=== PATIENT | male | born 1965 | race Hispanic/Latino ===

== ENCOUNTER 2019-02-10 01:09 | Emergency (ER) | payer BC ==
[2019-02-10 01:45] VITALS: O2SAT 99
[2019-02-10 02:49] LABS: BASO # 0.1 K/uL (0.0-0.2); EOS # 0.4 K/uL (0.0-0.7); EOS % 6.9 % (0.0-4.0); HEMOGLOBIN 13.8 g/dL (12.0-18.0); LYMPH # 1.6 K/uL (1.0-4.3); LYMPH % 24.6 % (20.0-40.0); MEAN CELL VOLUME 91.4 fl (80.0-94.0); MEAN CORPUSCULAR HEMOGLOBIN 30.9 pg (27.0-31.0); MEAN CORPUSCULAR HGB CONC 33.8 g/dL (33.0-37.0); MEAN PLATELET VOLUME 7.8 fl (7.2-11.7); MONO # 0.7 K/uL (0.0-0.8); MONO % 11.4 % (0.0-10.0); NEUT # 3.6 K/uL (1.8-7.0); NEUT % 56.1 % (50.0-75.0); PROTHROMBIN TIME 11.4 Seconds (9.8-13.1); RBC 4.46 Mil/uL (4.40-5.90); RED CELL DISTRIBUTION WIDTH 13.9 % (11.5-14.5); WHITE BLOOD COUNT 6.4 K/uL (4.8-10.8)
[2019-02-10 02:51] LABS: PARTIAL THROMBOPLASTIN TIME 25.7 Seconds (25.6-37.1)
[2019-02-10 02:53] LABS: BLOOD UREA NITROGEN 23 mg/dl (9-20); CALCIUM 9.5 mg/dL (8.4-10.2); GFR NON-AFRICAN AMERICAN > 60
--- NOTE | 2019-02-10 03:02 | ED PDOC ---
Syncope/Near Syncope/Dizziness Time Seen by Provider: 02/10/19 01:44 Chief Complaint (Nursing): Syncope Chief Complaint (Provider): Syncope History Per: Patient History/Exam Limitations: no limitations Onset/Duration Of Symptoms: Days, Waxing/Waning Additional Complaint(s): 54 y/o male with no significant PMHx presents to the ED for evaluation of a syncopal episode. Patient states he has been in bed all day due to sustaining a knee injury from running. Patient notes that when he got up to go to the kitchen, he felt like the blood rushed from hist head to the rest of his body causing him to be very lightheaded, dizzy and short of breath. Patient states he passed out and hit his head. Patient denies any seizure activity. Patient only complaining of a mild headache at this time. PMD: Dr. Efrain Casas Past Medical History Reviewed: Historical Data, Nursing Documentation, Vital Signs Vital Signs: Last Vital Signs Temp 97.4 F L 02/10/19 01:21 Pulse 70 02/10/19 01:21 Resp 17 02/10/19 01:21 BP 137/74 02/10/19 01:21 Pulse Ox 99 02/10/19 01:21 - Medical History PMH: No Chronic Diseases - Surgical History Surgical History: No Surg Hx - Family History Family History: States: Unknown Family Hx - Home Medications Home Medications: Ambulatory Orders Medication Instructions Recorded No Known Home Med 02/02/17 - Allergies Allergies/Adverse Reactions: Allergies Allergy/AdvReac Type Severity Reaction Status Date / Time No Known Allergies Allergy Verified 02/02/17 15:33 Review of Systems ROS Statement: Except As Marked, All Systems Reviewed And Found Negative Respiratory: Positive for: Shortness of Breath Musculoskeletal: Positive for: Other (head injury) Neurological: Positive for: Headache, Dizziness (lightheadedness) Physical Exam - Reviewed Nursing Documentation Reviewed: Yes Vital Signs Reviewed: Yes - Physical Exam Appears: Positive for: No Acute Distress Head Exam: Negative for: NORMAL INSPECTION (skin tear to the upper forehead. 2 cm jadded laceration to the lower forehead. Abrasian noted to the nasal bridge. Nares noted to have dried blood. No septal hematoma. ) Skin: Positive for: Warm, Dry Eye Exam: Positive for: Normal appearance Neck: Positive for: Normal, Painless ROM Cardiovascular/Chest: Positive for: Regular Rate, Rhythm. Negative for: Murmur Respiratory: Positive for: Normal Breath Sounds. Negative for: Respiratory Distress Extremity: Positive for: Normal ROM. Negative for: Deformity Neurological/Psych: Positive for: Awake, Alert, Oriented (x3). Negative for: Motor/Sensory Deficits - Laboratory Results Result Diagrams: 02/10/19 02:35 02/10/19 02:35 Lab Results: PT 11.4 Seconds (9.8-13.1) 02/10/19 02:35 INR 1.0 02/10/19 02:35 APTT 25.7 Seconds (25.6-37.1) 02/10/19 02:35 - ECG O2 Sat by Pulse Oximetry: 99 (RA) Pulse Ox Interpretation: Normal Medical Decision Making Medical Decision Making: Time: 210 A/P: 54 y/o male with syncope after prolonged immobilization -- CT Head w/o Contrast -- CT Maxillofacial w/o Contrast -- EKG -- Alcohol Serum -- BMP -- Urine Drug Screen -- CBC with Differentials -- PTT -- Prothrombin Time -- Glucose, POC -- Tylenol 650 mg PO -- Glucose, Blood, POC Time: 035 CT scan of the facial bones. Indication: Facial injury. Technique: Axial CT scan images without contrast. Reformatted coronal and sagittal images. Findings: Right frontal soft tissue laceration. Normal bilateral orbital contents. Normal bilateral medial and inferior orbital escoto. Normal bilateral maxillary bones. Normal bilateral maxillary sinuses. Normal bilateral frontozygomatic arches. Normal bilateral zygomatic temporal arches. Normal nasal bones. Normal anterior nasal spine. There is no demonstrated fracture. Normal visualized frontal, ethmoidal and sphenoid sinuses. Impression: No CT evidence of acute bone pathology. Thank you for your kind referral of this patient. Electronically signed on Feb 10, 2019 3:56:58 AM EDT by: Rhiannon Lundy M.D., Certified by AIDE, MSK, Neuroradiology Time: 358 CT SCAN OF THE BRAIN WITHOUT IV CONTRAST CLINICAL INDICATION: Head injury. TECHNIQUE: Axial and reformatted sagittal and coronal images of the brain obtained without IV contrast administration. Normal size of the ventricles and extra-axial spaces for the patient's age. Normal white matter tracts of the supratentorial brain. Normal basal ganglia and thalami. Normal brainstem. Normal cerebellum. There is no demonstrated extra-axial, intraparenchymal, or intraventricular hemorrhage. There are no findings of an acute ischemic infarction. Normal calvarium. There is no demonstrated fracture. Normal soft tissue structures. Normal visualized paranasal sinuses. IMPRESSION: Normal unenhanced CT scan of the brain. Electronically signed on Feb 10, 2019 3:59:49 AM EDT by: Rhiannon Lundy M.D., Certified by ABR, MSK, Neuroradiology Time: 0 -- Discussed findings of CT with patient. Patient reports an improvement of symptoms. Laceration repair performed. Patient is stable for discharge home. ___ Scribe Attestation: Documented by Igor Tineo, acting as a scribe for Brady Hayden MD. Provider Scribe Attestation: All medical record entries made by the Scribe were at my direction and per sonally dictated by me. I have reviewed the chart and agree that the record accurately reflects my personal performance of the history, physical exam, medical decision making, and the department course for this patient. I have also personally directed, reviewed, and agree with the discharge instructions and disposition. Procedures - Laceration/Wound Repair Face Wound Length (cm): 2 Wound's Depth, Shape: irregular (JAGGED) Irrigated w/ Saline (ccs): 100 Anesthesia: Lidocaine w/ Epi Wound Repaired With: Sutures Suture Size/Type: 6:0 Number of Sutures: 6 Wound Complexity: Simple Disposition - Clinical Impression Clinical Impression: Syncope, Laceration, Head injury - Patient ED Disposition Is Patient to be Admitted: No Counseled Patient/Family Regarding: Studies Performed, Diagnosis, Need For Followup - Disposition Referrals: [facility] [Outside] Disposition: Routine/Home Disposition Time: 04:40 Condition: STABLE Instructions: Syncope (Fainting), Closed Head Injury, Laceration Repair With Stitches (DC) Forms: [facility] ([place]ian)
[2019-02-10] MEDS ORDERED: Lidocaine 1% w Epi 1:100,000 Inj ONE (03:58)
[2019-02-10 04:58] VITALS: BP 126/78; PULSE 65; RESP 14; TEMP 98
--- NOTE | 2019-02-10 08:56 | CARD ---
APPROVED REPORT Date of service: 02/10/2019 EKG Measurement Heart [id number] <Conclusion> Normal sinus rhythm Normal ECG
--- NOTE | 2019-02-10 12:01 | CT ---
Date of service: 02/10/2019 PROCEDURE: CT HEAD WITHOUT CONTRAST. HISTORY: Head injury COMPARISON: Comparison made with concurrent CT scan maxillofacial skeleton. TECHNIQUE: Axial computed tomography images were obtained through the head/brain without intravenous contrast. Radiation dose: Total exam DLP = 794.5 mGy-cm. This CT exam was performed using one or more of the following dose reduction techniques: Automated exposure control, adjustment of the mA and/or kV according to patient size, and/or use of iterative reconstruction technique. FINDINGS: HEMORRHAGE: No acute parenchymal, subarachnoid nor extra-axial hemorrhage. BRAIN: There may be some minimal chronic periventricular white matter ischemic changes. Mild generalized volume loss. No obvious parenchymal nor extra-axial masses or collections seen on this noncontrast exam. VENTRICLES: No obstructive hydrocephalus. CALVARIUM: Unremarkable. There is mild supraorbital and medial frontal scalp swelling which extends inferiorly over the glabella and bridge of the nose region. PARANASAL SINUSES: Unremarkable as visualized. No significant inflammatory changes. MASTOID AIR CELLS: Unremarkable as visualized. No inflammatory changes. OTHER FINDINGS: Orbits and contents appear grossly unremarkable. IMPRESSION: No acute intracranial hemorrhage. Suspect minimal chronic periventricular white matter ischemic changes. Mild generalized volume loss. Mild right supraorbital and medial frontal scalp swelling extending inferiorly over the bridge of the nose.
--- NOTE | 2019-02-10 12:07 | CT ---
Date of service: 02/10/2019 PROCEDURE: CT MAXILLOFACIAL BONES WITHOUT CONTRAST HISTORY: Head injury, facial injury after syncope COMPARISON: Comparison made with concurrent CT scan of the brain. The TECHNIQUE: Contiguous axial CT images of the maxillofacial bones were obtained. Coronal and sagittal reformats were generated. Radiation dose: Total exam DLP = 735.66 mGy-cm. This CT exam was performed using one or more of the following dose reduction techniques: Automated exposure control, adjustment of the mA and/or kV according to patient size, and/or use of iterative reconstruction technique. FINDINGS: NASAL BONES: There are bilateral nasal bone fracture deformities, age indeterminate although there is minor soft tissue swelling over the bridge of the nose and glabella region as well as right nasal bones.. There is also mild soft tissue swelling in the right supraorbital region. ORBITS: There is mild right supraorbital soft tissue swelling (and presumed skin laceration), which extends over the glabella region and bridge of nose... The bony orbits otherwise appear intact. Globes intact and lenses appropriately located. There are no retrobulbar hemorrhages or collections. Optic nerves and extraocular musculature PARANASAL SINUSES/ MASTOIDS: Clear. MAXILLA: Maxilla including the anterior nasal spine intact. MANDIBLE/ TEMPOROMANDIBULAR JOINTS: Unremarkable. SKULL BASE: Unremarkable. TEMPORAL BONES: Middle ears and mastoid grossly unremarkable. OTHER FINDINGS: None. IMPRESSION: Age-indeterminate bilateral nasal bone fractures. There is mild soft tissue swelling in the right supraorbital and right frontal region (which is appears to be be associated with a skin overlying skin laceration as well) extending inferiorly over the glabella and bridge of nose and right nasal bones.
== END 2019-02-10 04:50 | disposition home or self-care (01) ==
LOC: H.ER 01:09
DX: S09.90XA Unspecified injury of head, initial encounter (principal); S01.81XA Laceration without foreign body of other part of head, initial encounter; W19.XXXA Unspecified fall, initial encounter
CPT/HCPCS: 12011; 70450; 70486; 80048; 82948; 84484; 85025; 85610; 85730; 93005; 99285; G0480